=== PATIENT | female | born 1980 | race Caucasian/White ===

== ENCOUNTER → 2017-01-18 | Outpatient (CLI) | payer BC ==
--- NOTE | 2017-01-18 08:23 | US ---
EXAMINATION TYPE: US pelvic complete DATE OF EXAM: 01/18/2017 7:59 AM COMPARISON: NONE CLINICAL HISTORY: R10.2 Pelvic and Perineal,. general pain "all over" for a couple months, patient do es have irregular cycles and is currently late for next cycle TECHNIQUE: TA Date of LMP: 11/23/2016 EXAM MEASUREMENTS: Uterus: 7.6 x 5.4 x 5.6 cm Endometrial Stripe: 1.9 cm Right Ovary: 2.8 x 2.3 x 2.2 cm Left Ovary: 3.4 x 2.6 x 2.3 cm 1. Uterus: Anteverted no distinct mass although uterine myometrium is heterogenous. 2. Endometrium: thickened 3. Right Ovary: wnl 4. Left Ovary: wnl 5. Bilateral Adnexa: wnl 6. Posterior cul-de-sac: wnl IMPRESSION: Heterogenous uterine myometrium is nonspecific. Otherwise examination is within normal li mits.
--- NOTE | 2017-01-18 08:25 | US ---
EXAMINATION TYPE: US abdomen complete DATE OF EXAM: 01/18/2017 8:13 AM COMPARISON: NONE CLINICAL HISTORY: R10.2 Pelvic and Perineal, R10.10 Upper abd pain. General pain for a few months EXAM MEASUREMENTS: Liver Length: 14.2 cm Gallbladder Wall: 0.2 cm CBD: 0.5 cm Spleen: 10.4 cm Right Kidney: 10.2 x 4.6 x 5.5 cm Left Kidney: 10.1 x 4.4 x 5.4 cm Pancreas: tail was obscured by bowel gas, otherwise wnl Liver: difficult to penetrate, wnl Gallbladder: wnl Evidence for sonographic Mercer's sign: no CBD: wnl Spleen: wnl Right Kidney: wnl Left Kidney: wnl Upper IVC: wnl Abd Aorta: wnl The liver is homogenous. The intrahepatic portion of the IVC and proximal abdominal aorta are within normal limits. There is no evidence of cholelithiasis. Common bile duct is unremarkable. The visu alized portions of the pancreas are homogenous. The spleen is unremarkable. Kidneys are symmetric a nd free of hydronephrosis. No renal lesions are seen. IMPRESSION: Negative study.
== END | disposition home or self-care (01) ==
LOC: RADUSWWP 07:48
PROVIDERS: ATTEND Family Medicine
DX: R10.2 Pelvic and perineal pain (principal)
CPT/HCPCS: 76700; 76856

== ENCOUNTER 2019-12-17 08:56 | Emergency (ER) | payer BC ==
[2019-12-17 09:16] VITALS: RESP 18; TEMP 98.1
[2019-12-17] MEDS ORDERED: SODIUM CHLORIDE 0.9% 2,000 ML IV ONE (09:41)
[2019-12-17] MEDS ORDERED: METOCLOPRAMIDE 5 MG/ML 2 ML VIAL IVP STA (09:41)
[2019-12-17] MEDS ORDERED: diphenhydrAMINE 50 MG/ML 1 ML VIAL IVP STA (09:41)
--- NOTE | 2019-12-17 09:49 | ED ---
Nausea/Vomiting/Diarrhea HPI - General Chief complaint: Nausea/Vomiting/Diarrhea Stated complaint: poss dehydration/8 wks preg Time Seen by Provider: 12/17/19 09:19 Source: patient, RN notes reviewed Mode of arrival: ambulatory Limitations: no limitations - History of Present Illness Initial comments: This a 39-year-old female presents emergency Department chief complaint of nausea vomiting, dehydration early . Patient is A0 scheduled see her BEAN DU[employer] Dr. Castro tomorrow. Patient states that she generally does not feel well she's been nauseated unable to keep any down at this point. She states that she did go on a cruise recently but states an OB also sick and she states symptoms were present prior to going to the cruise. Patient denies any significant abdominal pain she did have some spotting last week but no bleeding at this time denies any vaginal discharge. Patient has no current dysuria denies flank pain, back pain, no fevers or chills. - Related Data Home Medications Medication Instructions Recorded Confirmed Loratadine [Claritin] 5 mg PO DAILY 03/18/15 03/18/15 Allergies Allergy/AdvReac Type Severity Reaction Status Date / Time No Known Allergies Allergy Verified 12/17/19 09:16 Review of Systems ROS Statement: Those systems with pertinent positive or pertinent negative responses have been documented in the HPI. ROS Other: All systems not noted in ROS Statement are negative. Past Medical History Past Medical History: Asthma History of Any Multi-Drug Resistant Organisms: None Reported Past Surgical History: Section Past Psychological History: No Psychological Hx Reported Smoking Status: Never smoker Past Alcohol Use History: None Reported Past Drug Use History: None Reported General Exam Limitations: no limitations General appearance: alert, in no apparent distress Head exam: Present: atraumatic, normocephalic, normal inspection Eye exam: Present: normal appearance, PERRL, EOMI. Absent: scleral icterus, conjunctival injection, periorbital swelling Neck exam: Present: normal inspection, full ROM. Absent: tenderness, meningismus, lymphadenopathy Respiratory exam: Present: normal lung sounds bilaterally. Absent: respiratory distress, wheezes, rales, rhonchi, stridor Cardiovascular Exam: Present: regular rate, normal rhythm, normal heart sounds. Absent: systolic murmur, diastolic murmur, rubs, gallop, clicks GI/Abdominal exam: Present: soft, normal bowel sounds. Absent: distended, tenderness, guarding, rebound, rigid Back exam: Absent: CVA tenderness (R), CVA tenderness (L) Neurological exam: Present: alert Skin exam: Present: warm, dry, intact, normal color. Absent: rash Course Vital Signs 12/17/19 09:13 Temperature 98.1 F Pulse Rate 90 Respiratory 18 Rate Blood Pressure 125/87 O2 Sat by Pulse 100 Oximetry Medical Decision Making - Medical Decision Making 39-year-old female presented for nausea vomiting. Patient was well hydrated, given Reglan and Benadryl she does feel improved she did develop some bleeding in emergency department by has no current pain. Patient is A- blood type will be given RhoGAM. Patient has appointment with Dr. Castro tomorrow for follow- up and return for any worsening symptoms. - Lab Data Result diagrams: 12/17/19 09:50 12/17/19 09:50 Lab Results 12/17/19 12/17/19 12/17/19 Range/Units 09:50 09:50 09:50 WBC 8.4 (3.8-10.6) k/uL RBC 4.57 (3.80-5.40) m/uL Hgb 13.7 (11.4-16.0) gm/dL Hct 40.3 (34.0-46.0) % MCV 88.1 (80.0-100.0) fL MCH 30.0 (25.0-35.0) pg MCHC 34.1 (31.0-37.0) g/dL RDW 12.1 (11.5-15.5) % Plt Count 182 (150-450) k/uL Neutrophils % 82 % Lymphocytes % 13 % Monocytes % 3 % Eosinophils % 1 % Basophils % 0 % Neutrophils # 6.8 (1.3-7.7) k/uL Lymphocytes # 1.1 (1.0-4.8) k/uL Monocytes # 0.3 (0-1.0) k/uL Eosinophils # 0.1 (0-0.7) k/uL Basophils # 0.0 (0-0.2) k/uL Sodium (137-145) mmol/L Potassium (3.5-5.1) mmol/L Chloride (98-107) mmol/L Carbon Dioxide (22-30) mmol/L Anion Gap mmol/L BUN (7-17) mg/dL Creatinine (0.52-1.04) mg/dL Est GFR (CKD-EPI)AfAm (>60 ml/min/1.73 sqM) Est GFR (CKD-EPI)NonAf (>60 ml/min/1.73 sqM) Glucose (74-99) mg/dL Calcium (8.4-10.2) mg/dL Total Bilirubin (0.2-1.3) mg/dL AST (14-36) U/L ALT (4-34) U/L Alkaline Phosphatase (38-126) U/L Total Protein (6.3-8.2) g/dL Albumin (3.5-5.0) g/dL HCG, Quant mIU/mL Urine Color Yellow Urine Appearance Clear (Clear) Urine pH 5.5 (5.0-8.0) Ur Specific [place] 1.019 (1.001-1.035) Urine Protein Negative (Negative) Urine Glucose (UA) Negative (Negative) Urine Ketones Trace H (Negative) Urine Blood Negative (Negative) Urine Nitrite Negative (Negative) Urine Bilirubin Negative (Negative) Urine Urobilinogen <2.0 (<2.0) mg/dL Ur Leukocyte Esterase Small H (Negative) Urine RBC 1 (0-5) /hpf Urine WBC 2 (0-5) /hpf Ur Squamous Epith Cells 5 H (0-4) /hpf Urine Bacteria Occasional H (None) /hpf Hyaline Casts 1 (0-2) /lpf Urine Mucus Many H (None) /hpf Blood Type A Negative Blood Type Recheck A Neg Bld Type Recheck Status No 12/17/19 Range/Units 09:50 WBC (3.8-10.6) k/uL RBC (3.80-5.40) m/uL Hgb (11.4-16.0) gm/dL Hct (34.0-46.0) % MCV (80.0-100.0) fL MCH (25.0-35.0) pg MCHC (31.0-37.0) g/dL RDW (11.5-15.5) % Plt Count (150-450) k/uL Neutrophils % % Lymphocytes % % Monocytes % % Eosinophils % % Basophils % % Neutrophils # (1.3-7.7) k/uL Lymphocytes # (1.0-4.8) k/uL Monocytes # (0-1.0) k/uL Eosinophils # (0-0.7) k/uL Basophils # (0-0.2) k/uL Sodium 134 L (137-145) mmol/L Potassium 3.9 (3.5-5.1) mmol/L Chloride 104 (98-107) mmol/L Carbon Dioxide 20 L (22-30) mmol/L Anion Gap 10 mmol/L BUN 10 (7-17) mg/dL Creatinine 0.64 (0.52-1.04) mg/dL Est GFR (CKD-EPI)AfAm >90 (>60 ml/min/1.73 sqM) Est GFR (CKD-EPI)NonAf >90 (>60 ml/min/1.73 sqM) Glucose 86 (74-99) mg/dL Calcium 8.8 (8.4-10.2) mg/dL Total Bilirubin 0.5 (0.2-1.3) mg/dL AST 21 (14-36) U/L ALT 15 (4-34) U/L Alkaline Phosphatase 42 (38-126) U/L Total Protein 6.7 (6.3-8.2) g/dL Albumin 3.8 (3.5-5.0) g/dL HCG, Quant 75417.3 mIU/mL Urine Color Urine Appearance (Clear) Urine pH (5.0-8.0) Ur Specific [place] (1.001-1.035) Urine Protein (Negative) Urine Glucose (UA) (Negative) Urine Ketones (Negative) Urine Blood (Negative) Urine Nitrite (Negative) Urine Bilirubin (Negative) Urine Urobilinogen (<2.0) mg/dL Ur Leukocyte Esterase (Negative) Urine RBC (0-5) /hpf Urine WBC (0-5) /hpf Ur Squamous Epith Cells (0-4) /hpf Urine Bacteria (None) /hpf Hyaline Casts (0-2) /lpf Urine Mucus (None) /hpf Blood Type Blood Type Recheck Bld Type Recheck Status Disposition Clinical Impression: Nausea/vomiting in , Threatened miscarriage in early Disposition: HOME SELF-CARE Condition: Stable Instructions (If sedation given, give patient instructions): Acute Nausea and Vomiting (ED) Additional Instructions: Please return to the Emergency Department if symptoms worsen or any other concerns. Is patient prescribed a controlled substance at d/c from ED?: No Referrals: Skylar Carter III, MD [Primary Care Provider] - 1-2 days Time of Disposition: 11:38
[2019-12-17 10:13] LABS: Basophils % (A) 0 %; Eosinophils # (A) 0.1 k/uL (0-0.7); Eosinophils % (A) 1 %; HCT 40.3 % (34.0-46.0); HGB 13.7 gm/dL (11.4-16.0); Lymphocytes # (A) 1.1 k/uL (1.0-4.8); Lymphocytes % (A) 13 %; MCHC 34.1 g/dL (31.0-37.0); MCV 88.1 fL (80.0-100.0); Mean Platelet Volume 8.5; Monocytes # (A) 0.3 k/uL (0-1.0); Monocytes % (A) 3 %; Neutrophils # (A) 6.8 k/uL (1.3-7.7); Neutrophils % (A) 82 %; Platelet Count 182 k/uL (150-450); RBC 4.57 m/uL (3.80-5.40); RDW 12.1 % (11.5-15.5); WBC 8.4 k/uL (3.8-10.6)
[2019-12-17 10:25] LABS: ALT 15 U/L (4-34); AST 21 U/L (14-36); African American GFR (CKD) >90 (>60 ml/min/1.73 sqM); Albumin 3.8 g/dL (3.5-5.0); Alkaline Phosphatase 42 U/L (38-126); Anion Gap 10 mmol/L; Blood Urea Nitrogen 10 mg/dL (7-17); Calcium 8.8 mg/dL (8.4-10.2); Carbon Dioxide 20 mmol/L (22-30); Chloride 104 mmol/L (98-107); Glucose 86 mg/dL (74-99); Non-African American GFR(CKD) >90 (>60 ml/min/1.73 sqM); Potassium 3.9 mmol/L (3.5-5.1); Sodium 134 mmol/L (137-145); Total Bilirubin 0.5 mg/dL (0.2-1.3); Total Protein 6.7 g/dL (6.3-8.2)
[2019-12-17 10:52] LABS: Appearance,Urine Clear (Clear); Bacteria,Urine Occasional /hpf; Bilirubin,Urine Negative (Negative); Blood,Urine Negative (Negative); Color,Urine Yellow; Glucose,Urine (UA) Negative (Negative); Hyaline Casts,Urine 1 /lpf (0-2); Ketones,Urine Trace (Negative); Leukocyte Esterase,Urine Small (Negative); Mucus,Urine Many /hpf; Nitrite,Urine Negative (Negative); PH, Urine 5.5 (5.0-8.0); Protein,Urine Negative (Negative); RBC,Urine 1 /hpf (0-5); Specific Gravity,Urine 1.019 (1.001-1.035); Squamous Epithelial Cell,Urine 5 /hpf (0-4); Urobilinogen,Urine <2.0 mg/dL (<2.0); WBC,Urine 2 /hpf (0-5)
[2019-12-17] MEDS ORDERED: Rhogam IMMUNE GLOBULIN 1,500 UNIT/1 ML IM ONE (11:04)
--- NOTE | 2019-12-17 11:07 | US ---
EXAMINATION TYPE: Transabdominal DATE OF EXAM: 12/17/2019 10:53 AM COMPARISON: NONE CLINICAL HISTORY: pain. Dizziness EXAM PERFORMED: Transabdominal (TA) EXAM MEASUREMENTS: GESTATIONAL AGE / DATING Physician Established: Not yet established Dates by LMP: (8 weeks/1 days) EDC: 07/27/2020 Dates by First Scan: No previous this is first scan Dates by Current Scan for: ( 7 weeks/2 days) EDC: 08/02/2020 MATERNAL ANATOMY Uterus: 9.8 x 6.3 x 7.0 cm Right Ovary: 3.2 x 1.8 x 2.8 cm Left Ovary: 3.8 x 3.7 x 3.5 cm Post CDS / Adnexa: wnl Presence of free fluid: no Presence of corpus luteal cyst: yes left ovary Presence of subchorionic bleed: no GESTATION / SURVEY CRL: 1.14 cm (7 weeks/2 days) Yolk Sac (normal less than 6mm): 2 mm Heart Rate: 142 bpm Rhythm: Normal IUP: Live IUP Date of LMP: 10/21/2019 Beta HcG (if available): Not available at this time IMPRESSION: Single live intrauterine has a sonographic age of 7 weeks and 2 days and estima leo date of delivery of 08/02/2020, borderline concordant with menstrual age.
[2019-12-17] MEDS ORDERED: ACETAMINOPHEN TAB 325 MG TAB PO STA (11:27)
[2019-12-17 11:34] LABS: HCG,Quantitative Serum 70020.3 mIU/mL
[2019-12-17 13:34] VITALS: BP 103/65; PULSE 64
== END 2019-12-17 13:33 | disposition home or self-care (01) ==
LOC: EC 08:56
DX: O20.0 Threatened abortion (principal); O21.9 Vomiting of pregnancy, unspecified; Z67.11 Type A blood, Rh negative; O99.511 Diseases of the respiratory system complicating pregnancy, first trimester; J45.909 Unspecified asthma, uncomplicated; Z79.899 Other long term (current) drug therapy; Z98.890 Other specified postprocedural states; Z3A.01 Less than 8 weeks gestation of pregnancy
CPT/HCPCS: 36415; 86900; 86901; 80053; 85025; 86850; 81001; 84702; 76801; 76817; 90384; 99284; 96374; 96375; 96361 ×2; 96372; J2791; J1200; J2765

== ENCOUNTER 2020-06-25 19:04 | Outpatient (CLI) | payer BC ==
[2020-06-25 20:28] VITALS: BP 130/80; PULSE 82; RESP 16; TEMP 97.1
--- NOTE | 2020-06-26 07:27 | P.MSEPDOC ---
Presenting Problems - Arrival Data Date of Arrival on Unit: 06/25/20 Time of Arrival on Unit: 19:04 Mode of Transport: Ambulatory - Complaint OB-Reason for Admission/Chief Complaint: Rule Out PROM Medical History - Information : 2 Para: 1 Term: 1 : 0 Abortions: Spontaneous or Elective: 0 Number of Living Children: 1 - Gestational Age Gestational Age by DIAMANTE (wks/days): 35 Weeks and 3 Days - History Complications: Prior Sexually Transmitted Diseases: HSV Review of Systems - Review of Systems Constitutional: No problems Breast: No problems ENT: No problems Cardiovascular: No problems Respiratory: No problems Gastrointestinal: No problems Genitourinary: No problems Musculoskeletal: No problems Neurological: No problems Skin: No problems Vital Signs - Temperature Temperature: 97.1 F Temperature Source: Temporal Artery Scan - Pulse Right Sitting Pulse Rate: 82 Pulse Assessment Method: Automatic Cuff - Respirations Respiratory Rate: 16 Oxygen Delivery Method: Room Air - Blood Pressure Right Arm Blood Pressure: 130/80 Blood Pressure Mean: 96 Blood Pressure Source: Automatic Cuff Medical Screen Scoring (Pre) - Cervical Exam Dilation: Exam Deferred Effacement: Exam Deferred Membranes: Intact - Uterine Contractions Frequency: N/A Duration: N/A Intensity: N/A - Maternal Vital Signs Maternal Temperature: N/A Maternal Blood Pressure: N/A Signs of Preeclampsia: N/A Maternal Respirations: N/A - Maternal Trauma Maternal Trauma: N/A - Assessment - Baby A Baseline FHR: 145 Heart Rate - NICHD Category: Category I (Normal) = 0 Position: N/A Station: N/A - Total Score - Baby A Total Score - Baby A: 0 - Total Score - Baby B Total Score - Baby B: 0 - Total Score - Baby C Total Score - Baby C: 0 - Level of Risk - Baby A Level of Risk - Baby A: Low (0-5) - Level of Risk - Baby B Level of Risk - Baby B: Low (0-5) - Level of Risk - Baby C Level of Risk - Baby C: Low (0-5) Physician Notification (Pre) - Physician Notified Physician Notified Date: 06/25/20 Physician Notified Time: 19:45 New Order Received: Yes (d/c home after 1 hour of monitoring, if fht remain reactive) Disposition - Disposition OB Disposition: Discharge to home, Written follow up instructions reviewed Discharge Date: 06/25/20 Discharge Time: 20:15 I agree with the RN Medical Screening Exam: Yes Risk & Benefit of care provided described in d/c instruction: Yes Diagnosis: FALSE LABOR BEFORE 37 COMPLETED WEEKS OF GEST, THIRD TRI (Patient presents complaining of gush of fluid earlier. In discussion with her as a small amount and has not been continuous. Speculum exam per the RN does not show any significant fluid in the anterior sure is negative. Nonstress tests is category 1. No evidence of maternal compromise. Plan is discharge home follow up Dr. Castro as scheduled.)
== END 2020-06-25 20:15 | disposition home or self-care (01) ==
LOC: FBPOP 19:04
PROVIDERS: ATTEND Obstetrics & Gynecology
DX: O47.03 False labor before 37 completed weeks of gestation, third trimester (principal); Z3A.35 35 weeks gestation of pregnancy
CPT/HCPCS: 59025; 84112; 99213

== ENCOUNTER 2020-07-03 10:38 | Outpatient (CLI) | payer BC ==
[2020-07-03 11:43] VITALS: PULSE 95; RESP 18; TEMP 98.2
[2020-07-03 11:45] LABS: Basophils % (A) 0 %; Eosinophils # (A) 0.1 k/uL (0-0.7); Eosinophils % (A) 1 %; HCT 38.5 % (34.0-46.0); HGB 12.8 gm/dL (11.4-16.0); Lymphocytes # (A) 1.6 k/uL (1.0-4.8); Lymphocytes % (A) 18 %; MCH 30.5 pg (25.0-35.0); MCHC 33.2 g/dL (31.0-37.0); MCV 91.9 fL (80.0-100.0); Mean Platelet Volume 9.7; Monocytes # (A) 0.4 k/uL (0-1.0); Monocytes % (A) 5 %; Neutrophils # (A) 6.8 k/uL (1.3-7.7); Neutrophils % (A) 75 %; Platelet Count 161 k/uL (150-450); RBC 4.19 m/uL (3.80-5.40); WBC 9.1 k/uL (3.8-10.6)
[2020-07-03 11:51] LABS: ALT 18 U/L (4-34); AST 25 U/L (14-36); African American GFR (CKD) >90 (>60 ml/min/1.73 sqM); Blood Urea Nitrogen 9 mg/dL (7-17); LDH 427 U/L (313-618); Non-African American GFR(CKD) >90 (>60 ml/min/1.73 sqM); Uric Acid 3.7 mg/dL (3.7-7.4)
[2020-07-03 11:55] LABS: Appearance,Urine Cloudy (Clear); Bacteria,Urine Moderate /hpf; Bilirubin,Urine Negative (Negative); Blood,Urine Negative (Negative); Color,Urine Yellow; Glucose,Urine (UA) Negative (Negative); Hyaline Casts,Urine 1 /lpf (0-2); Ketones,Urine Negative (Negative); Leukocyte Esterase,Urine Moderate (Negative); Mucus,Urine Occasional /hpf; Nitrite,Urine Negative (Negative); PH, Urine 6.5 (5.0-8.0); Protein,Urine Negative (Negative); RBC,Urine 1 /hpf (0-5); Specific Gravity,Urine 1.017 (1.001-1.035); Squamous Epithelial Cell,Urine 1 /hpf (0-4); Urobilinogen,Urine <2.0 mg/dL (<2.0); WBC,Urine 6 /hpf (0-5)
[2020-07-03 12:10] LABS: Protein/Creatinine Ratio,Urine 0.119
[2020-07-03 12:51] VITALS: BP 134/85
--- NOTE | 2020-07-21 09:56 | P.MSEPDOC ---
Presenting Problems - Arrival Data Date of Arrival on Unit: 07/03/20 Time of Arrival on Unit: 10:50 Mode of Transport: Ambulatory - Complaint OB-Reason for Admission/Chief Complaint: PIH Medical History - Information : 2 Para: 1 Term: 1 : 0 Abortions: Spontaneous or Elective: 0 Number of Living Children: 1 - Gestational Age Gestational Age by DIAMANTE (wks/days): 36 Weeks and 4 Days - History Sexually Transmitted Diseases: HSV Comment: on valtrex daily 500 mg Review of Systems - Review of Systems Constitutional: No problems Breast: No problems ENT: No problems Cardiovascular: No problems Respiratory: No problems Gastrointestinal: No problems Genitourinary: No problems Musculoskeletal: No problems Neurological: No problems Skin: No problems Vital Signs - Temperature Temperature: 98.2 F Temperature Source: Oral - Pulse Right Brachial Pulse Rate: 95 Pulse Assessment Method: Automatic Cuff - Respirations Respiratory Rate: 18 Oxygen Delivery Method: Room Air O2 Sat by Pulse Oximetry: 100 - Blood Pressure Right Arm Blood Pressure: 134/85 Blood Pressure Mean: 101 Blood Pressure Source: Automatic Cuff Medical Screen Scoring (Pre) - Cervical Exam Dilation: Exam Deferred Effacement: Exam Deferred Membranes: Intact - Uterine Contractions Frequency: N/A Duration: N/A Intensity: N/A - Maternal Vital Signs Maternal Temperature: N/A Maternal Blood Pressure: N/A Signs of Preeclampsia: N/A Maternal Respirations: N/A - Maternal Trauma Maternal Trauma: N/A - Assessment - Baby A Baseline FHR: 145 Heart Rate - NICHD Category: Category I (Normal) = 0 NST: Reactive Position: N/A Station: N/A - Total Score - Baby A Total Score - Baby A: 0 - Total Score - Baby B Total Score - Baby B: 0 - Total Score - Baby C Total Score - Baby C: 0 - Level of Risk - Baby A Level of Risk - Baby A: Low (0-5) - Level of Risk - Baby B Level of Risk - Baby B: Low (0-5) - Level of Risk - Baby C Level of Risk - Baby C: Low (0-5) Physician Notification (Pre) - Physician Notified Physician Notified Date: 07/03/20 Physician Notified Time: 12:35 New Order Received: Yes - Notification Comment Comment: disch home. will call antibiotic into [facility] for UTI in approx 1 hr. Disposition - Disposition OB Disposition: Discharge to home Discharge Date: 07/03/20 Discharge Time: 12:45 I agree with the RN Medical Screening Exam: Yes Risk & Benefit of care provided described in d/c instruction: Yes Diagnosis: GESTATIONAL HTN W/O SIGNIFICANT PROTEINURIA, FIRST TRIMESTER
== END 2020-07-03 12:45 | disposition home or self-care (01) ==
LOC: FBPOP 10:38
PROVIDERS: ATTEND Obstetrics & Gynecology
DX: O13.3 Gestational [pregnancy-induced] hypertension without significant proteinuria, third trimester (principal); Z3A.36 36 weeks gestation of pregnancy
CPT/HCPCS: 59025; 81001; 82565; 82570; 83615; 84156; 84450; 84460; 84520; 84550; 85025

== ENCOUNTER 2020-07-07 14:05 | Inpatient (IN) | payer BC ==
[2020-07-07] MEDS ORDERED: LACTATED RINGERS 1,000 ML IV ONE (14:47)
[2020-07-07] MEDS ORDERED: CITRIC ACID-SODIUM CITRATE 15 ML CUP PO ONE (14:47)
[2020-07-07] MEDS ORDERED: LACTATED RINGERS 1,000 ML IV SCH (15:00)
[2020-07-07 15:13] LABS: Basophils % (A) 0 %; Eosinophils # (A) 0.1 k/uL (0-0.7); Eosinophils % (A) 1 %; HCT 42.9 % (34.0-46.0); Lymphocytes # (A) 1.7 k/uL (1.0-4.8); Lymphocytes % (A) 14 %; MCH 30.6 pg (25.0-35.0); MCHC 32.7 g/dL (31.0-37.0); MCV 93.7 fL (80.0-100.0); Mean Platelet Volume 9.8; Monocytes # (A) 0.4 k/uL (0-1.0); Monocytes % (A) 4 %; Neutrophils # (A) 9.1 k/uL (1.3-7.7); Neutrophils % (A) 79 %; Platelet Count 178 k/uL (150-450); RBC 4.58 m/uL (3.80-5.40); RDW 13.1 % (11.5-15.5); WBC 11.5 k/uL (3.8-10.6)
[2020-07-07 15:18] LABS: African American GFR (CKD) >90 (>60 ml/min/1.73 sqM); Non-African American GFR(CKD) >90 (>60 ml/min/1.73 sqM); Uric Acid 3.9 mg/dL (3.7-7.4)
[2020-07-07 15:31] LABS: INR 0.9 (<1.2); Partial Thromboplastin Time 21.9 sec (22.0-30.0); Prothrombin Time 9.4 sec (9.0-12.0)
[2020-07-07 16:32] LABS: Protein/Creatinine Ratio,Urine 0.094
[2020-07-07 16:37] LABS: Appearance,Urine Clear (Clear); Bilirubin,Urine Negative (Negative); Blood,Urine Negative (Negative); Color,Urine Yellow; Glucose,Urine (UA) Negative (Negative); Ketones,Urine 3+ (Negative); Leukocyte Esterase,Urine Negative (Negative); Nitrite,Urine Negative (Negative); PH, Urine 5.5 (5.0-8.0); Protein,Urine Trace (Negative); Specific Gravity,Urine 1.022 (1.001-1.035); Urobilinogen,Urine <2.0 mg/dL (<2.0)
[2020-07-07] MEDS ORDERED: MORPHINE SULFATE (PF) 0.3 MG/0.3 ML SYR ONE (16:57)
[2020-07-07] MEDS ORDERED: ONDANSETRON 4 MG/2 ML VIAL ONE (16:57)
[2020-07-07] MEDS ORDERED: OXYTOCIN 10 UNIT/ML 1 ML VIAL ONE (16:57)
[2020-07-07] MEDS ORDERED: fentaNYL (PF) 50 MCG/ML 2 ML AMP ONE (16:57)
[2020-07-07] MEDS ORDERED: KETOROLAC 15 MG/ML 1 ML VIAL ONE (16:57)
[2020-07-07] MEDS ORDERED: NALBUPHINE 10 MG/ML (1 ML AMP) ONE (16:57)
[2020-07-07] MEDS ORDERED: ePHEDrine SULFATE/0.9% NACL/PF 50 MG/5 ML SYRINGE IV ONE (16:57)
[2020-07-07] MEDS ORDERED: METOCLOPRAMIDE 5 MG/ML 2 ML VIAL IVP PRN (17:36)
[2020-07-07] MEDS ORDERED: NALOXONE 0.4 MG/ML 1 ML VIAL IV PRN (17:36)
[2020-07-07] MEDS ORDERED: diphenhydrAMINE 50 MG/ML 1 ML VIAL IVP PRN ×2 (17:36)
[2020-07-07] MEDS ORDERED: ZOLPIDEM 5 MG TAB PO PRN (17:36)
[2020-07-07] MEDS ORDERED: ONDANSETRON 4 MG/2 ML VIAL IVP PRN (17:36)
[2020-07-07] MEDS ORDERED: diphenhydrAMINE 25 MG CAP PO PRN (17:36)
[2020-07-07] MEDS ORDERED: diphenhydrAMINE 50 MG CAP PO PRN (17:36)
[2020-07-07] MEDS ORDERED: ACETAMINOPHEN TAB 325 MG TAB PO PRN (17:36)
--- NOTE | 2020-07-07 17:41 | P.HPOB ---
History of Present Illness H&P Date: 07/07/20 Chief Complaint: Intrauterine at term: Gestational hypertension Orlando is a 39-year-old G3 to P1 at 37 weeks gestation who arrived to my office today for her scheduled visit. At her visit today she was again noted to have elevated blood pressures just like last week and as she is now past 37 weeks the decision to move forward with a repeat section day was made. Risks/benefits/alternatives reviewed patient in detail and all questions were answered for her prior to proceeding to the operating room. Her course other than advanced maternal age has been unremarkable. She does have a history of HSV and was taking acyclovir for prophylaxis. No symptoms or issues were noted otherwise. She is scheduled for a repeat section with tubal ligation for family planning. Category 1 tracing is noted prior to proceeding to the operative. Past Medical History Past Medical History: Asthma Additional Past Medical History / Comment(s): noduals on thyroid History of Any Multi-Drug Resistant Organisms: None Reported Past Surgical History: Section Past Anesthesia/Blood Transfusion Reactions: No Reported Reaction Past Psychological History: No Psychological Hx Reported Smoking Status: Never smoker Past Alcohol Use History: None Reported Past Drug Use History: None Reported Medications and Allergies Home Medications Medication Instructions Recorded Confirmed Type Loratadine [Claritin] 5 mg PO DAILY MDD 5 mg 03/18/15 07/07/20 History Pnv No.95/Ferrous Fum/Folic AC 1 tab PO DAILY MDD 1 tab 06/25/20 07/07/20 History [ Multivitamin Tablet] valACYclovir [Valtrex] 500 mg PO DAILY MDD 500 mg 06/25/20 07/07/20 History Cephalexin [Keflex] 500 mg PO Q6HR 07/07/20 07/07/20 History Allergies Allergy/AdvReac Type Severity Reaction Status Date / Time No Known Allergies Allergy Verified 12/17/19 09:16 Exam Osteopathic Statement: *. No significant issues noted on an osteopathic structural exam other than those noted in the History and Physical/Consult. Vital Signs Temp Pulse Resp BP Pulse Ox 07/07/20 14:42 98.4 F 101 H 16 136/85 99 Intake and Output 07/07/20 07/07/20 07/07/20 06:59 14:59 22:59 Other: Weight 92.323 kg - OBG Physical Exam Breast: both: normal (no masses) Abdomen: bowel sounds normal, no diffuse tenderness, no bruit present, no guarding noted, no hepatomegaly, no splenomegaly, no mass Vulva: both: normal Vagina: normal moisture, no discharge Cervix: no lesion, no discharge Uterus: normal size, normal contour Adnexa: both: normal Anus/Rectum: normal perianal skin, no rectal mass, no hemorrhoids, heme negative Results Result Diagrams: 07/07/20 14:57 07/07/20 14:57 Abnormal Lab Results - Last 24 Hours (Table) 07/07/20 07/07/20 07/07/20 Range/Units 14:57 14:57 16:18 WBC 11.5 H (3.8-10.6) k/uL Neutrophils # 9.1 H (1.3-7.7) k/uL APTT 21.9 L (22.0-30.0) sec Fibrinogen 511 H (200-500) mg/dL Urine Protein Trace H (Negative) Urine Ketones 3+ H (Negative)
--- NOTE | 2020-07-07 17:44 | P.OP ---
Date of Procedure: 07/07/20 Preoperative Diagnosis: Intrauterine at term: Prior section: Family planning Postoperative Diagnosis: Same Procedure(s) Performed: Repeat low transverse section with bilateral tubal occlusion Filshie clips Anesthesia: spinal Surgeon: Clement Hardy Flight Technician #1: Krystyna Joy Estimated Blood Loss (ml): 300 IV fluids (ml): 1,000 Urine output (ml): 200 Pathology: other (Placenta) Condition: stable Disposition: floor Operative Findings: Female scores of 9 and 9 at one and 5 minutes respectively and weight was 5 lbs. 9 oz. Description of Procedure: Patient was taken to the operating suite where a spinal anesthetic was found to be adequate. She was prepped and draped in normal sterile fashion and placed in the dorsal supine position with leftward tilt. Initially a Pfannenstiel skin incision was made and this incision was then carried through to underlying layer of the fascia was second knife. Fascia was then nicked in midline and this opening was extended laterally with Sutton scissors. Superior and inferior aspect of this incision were then grasped tented up and bluntly and sharply dissected off the rectus muscles. Rectus muscles were then divided the midline and blunt dissection through the peritoneum was done. This opening was then extended superiorly and inferiorly with good visualization of both bowel bladder. Bladder blade was then placed and the bladder flap identified. It was entered sharply with metastases scissors carried across face uterus and then bluntly dissected out of the operative field. Knife was then used to incise uterus this opening was fully developed a hemostat and then bluntly extended. Head was then atraumatically delivered and mouth nares were bulb suctioned anterior posterior shoulders were then easily delivered followed by the remainder the baby. Nursery personnel was present and assumed care. Placenta was then delivered intact Pitocin was added to the IV. Uterus was then exteriorized cleared of clots and debris and closed in 1 layer with 0 Vicryl suture. Once excellent hemostasis was obtained blood and debris was suctioned from the posterior cul-de-sac. Fallopian tubes were then identified and 2 cm from uterine cornu Filshie clips were applied. Uterus was then reinserted into the abdomen clips were reevaluated noted to be in position and no bleeding is noted in the nasal salpinx. Therefore peritoneal layer was re-approximate with 0 Vicryl suture. Fascial layer was closed with 0 Vicryl suture. One layer of 3-0 Vicryl was placed in deep subcuticular tissues reapproximate skin and close the space. Skin was then closed with 4-0 Vicryl subcuticularly. Sponge, lap, needle counts were all correct 2. Patient was then taken to the recovery room in stable and satisfactory condition.
[2020-07-07] MEDS: LACTATED RINGERS 1,000 ML IV SCH (19:49)
[2020-07-08] MEDS: KETOROLAC 15 MG/ML 1 ML VIAL IVP PRN ×3 (00:52→13:47)
[2020-07-08] MEDS: SENNOSIDES-DOCUSATE SODIUM 1 EACH TAB PO SCH ×3 (02:13→20:53)
--- NOTE | 2020-07-08 07:20 | P.PN ---
Progress Note - Text Progress Note Date: 07/08/20 Patient seen and examined POD # 1 s/p . Patient received spinal anesthesia with duramorph for post operative pain management. Patient with acceptable pain this morning. Patient able to ambulate and use the restroom without difficulty. Patient denies headache, fever, chills, chest pain, itching, dizziness, SOB, parathesias. Spinal site clean and without erythema. All questions answered.
[2020-07-08 07:34] LABS: Basophils % (A) 0 %; Eosinophils # (A) 0.1 k/uL (0-0.7); Eosinophils % (A) 1 %; HCT 36.9 % (34.0-46.0); HGB 12.2 gm/dL (11.4-16.0); Lymphocytes # (A) 1.8 k/uL (1.0-4.8); Lymphocytes % (A) 15 %; MCH 30.8 pg (25.0-35.0); MCHC 33.2 g/dL (31.0-37.0); MCV 92.9 fL (80.0-100.0); Mean Platelet Volume 9.4; Monocytes # (A) 0.6 k/uL (0-1.0); Monocytes % (A) 5 %; Neutrophils # (A) 9.7 k/uL (1.3-7.7); Neutrophils % (A) 78 %; Platelet Count 164 k/uL (150-450); RBC 3.97 m/uL (3.80-5.40); RDW 13.1 % (11.5-15.5); WBC 12.4 k/uL (3.8-10.6)
--- NOTE | 2020-07-08 08:33 | P.PNOBGPC ---
Subjective - Subjective Principal diagnosis: Postop day 1 Interval history: Orlando is doing very well postop day 1. She is involuting, voiding and she is tolerating her diet. She voices no complaints. Vital signs are stable and afebrile. Blood pressure much improved today. Patient reports: Reports appetite normal : doing well Objective - Vital Signs Latest vital signs: Vital Signs Temp Pulse Resp BP Pulse Ox 07/08/20 04:00 75 16 83/49 99 07/08/20 00:00 98.6 F 90 16 96/58 99 07/07/20 19:42 97.0 F L 97 18 142/68 99 07/07/20 19:12 97.0 F L 81 16 128/79 99 07/07/20 18:42 97.1 F L 109 H 18 142/68 98 07/07/20 18:27 90 16 119/64 07/07/20 18:12 116 H 16 122/60 98 07/07/20 17:57 117 H 16 112/56 98 07/07/20 17:42 97 F L 107 H 16 117/57 97 07/07/20 14:42 98.4 F 101 H 16 136/85 99 Intake and Output 07/07/20 07/08/20 07/08/20 22:59 06:59 14:59 Output Total 300 Balance -300 Output: Urine 300 Other: Voiding Method Indwelling Catheter - Exam Lungs: bilateral: normal Chest: Normal S1, Normal S2 Extremities: Present: normal Abdomen: Present: normal appearance, soft. Absent: distention, tenderness Incision: Present: normal, dry, intact Uterus: Present: normal, firm - Labs Labs: Abnormal Lab Results - Last 24 Hours (Table) 07/07/20 07/07/20 07/07/20 Range/Units 14:57 14:57 16:18 WBC 11.5 H (3.8-10.6) k/uL Neutrophils # 9.1 H (1.3-7.7) k/uL APTT 21.9 L (22.0-30.0) sec Fibrinogen 511 H (200-500) mg/dL Urine Protein Trace H (Negative) Urine Ketones 3+ H (Negative) 07/08/20 Range/Units 07:02 WBC 12.4 H (3.8-10.6) k/uL Neutrophils # 9.7 H (1.3-7.7) k/uL APTT (22.0-30.0) sec Fibrinogen (200-500) mg/dL Urine Protein (Negative) Urine Ketones (Negative)
[2020-07-08] MEDS: LACTATED RINGERS 1,000 ML IV SCH (12:30)
[2020-07-08] MEDS: IBUPROFEN 600 MG TAB PO PRN (18:54)
[2020-07-08] MEDS: HYDROcodone/APAP 7.5-325MG 1 EACH TAB PO PRN (20:53)
[2020-07-09 00:13] VITALS: RESP 16
[2020-07-09] MEDS: IBUPROFEN 600 MG TAB PO PRN ×2 (01:59→09:57)
[2020-07-09] MEDS: HYDROcodone/APAP 7.5-325MG 1 EACH TAB PO PRN (05:58)
--- NOTE | 2020-07-09 07:48 | P.DS ---
Providers Date of admission: 07/07/20 14:05 Expected date of discharge: 07/09/20 Attending physician: Clement Hardy Primary care physician: Stated None Hospital Course: Orlando is doing very well postop day 2. She is ambulating, voiding and she is tolerating her diet. She voices no complaints and is requesting discharge home today. Her vital signs are stable and she is afebrile. Heart regular, lungs clear, extremities without pain. Abdomen is soft uterus is firm and her incision is otherwise clean dry and intact. Assessment postop day 2 plan discharged home follow up with me in 1 week. All the questions are answered for her at this time she is stable for discharge this time. Patient Condition at Discharge: Good Plan - Discharge Summary New Discharge Prescriptions: New Ibuprofen [Motrin] 600 mg PO Q6HR PRN #30 tab PRN Reason: Pain HYDROcodone/APAP 5-325MG [[place] 5-325] 1 tab PO Q4HR PRN #30 tab PRN Reason: Pain No Action Loratadine [Claritin] 5 mg PO DAILY MDD 5 mg valACYclovir [Valtrex] 500 mg PO DAILY MDD 500 mg Pnv No.95/Ferrous Fum/Folic AC [ Multivitamin Tablet] 1 tab PO DAILY MDD 1 tab Cephalexin [Keflex] 500 mg PO Q6HR Discharge Medication List Loratadine [Claritin] 5 mg PO DAILY MDD 5 mg 03/18/15 [History] Pnv No.95/Ferrous Fum/Folic AC [ Multivitamin Tablet] 1 tab PO DAILY MDD 1 tab 06/25/20 [History] valACYclovir [Valtrex] 500 mg PO DAILY MDD 500 mg 06/25/20 [History] Cephalexin [Keflex] 500 mg PO Q6HR 07/07/20 [History] HYDROcodone/APAP 5-325MG [[place] 5-325] 1 tab PO Q4HR PRN #30 tab 07/09/20 [Rx] Ibuprofen [Motrin] 600 mg PO Q6HR PRN #30 tab 07/09/20 [Rx]
[2020-07-09] MEDS: SENNOSIDES-DOCUSATE SODIUM 1 EACH TAB PO SCH (08:07)
[2020-07-09 08:54] VITALS: BP 130/80; PULSE 97; TEMP 97.8
== END 2020-07-09 10:10 | disposition home or self-care (01) | DRG 785 ==
LOC: 4FBP 14:05
PROVIDERS: ADMIT Obstetrics & Gynecology; ATTEND Obstetrics & Gynecology
PROC: 10D00Z1 Extraction of Products of Conception, Low, Open Approach (ICD-10-PCS; principal; 2020-07-07 17:09)
PROC: 0UL70CZ Occlusion of Bilateral Fallopian Tubes with Extraluminal Device, Open Approach (ICD-10-PCS; principal; 2020-07-07 17:09)
DX: O13.4 Gestational [pregnancy-induced] hypertension without significant proteinuria, complicating childbirth (principal); J45.909 Unspecified asthma, uncomplicated; O34.211 Maternal care for low transverse scar from previous cesarean delivery; O99.52 Diseases of the respiratory system complicating childbirth; Z30.2 Encounter for sterilization; N85.8 Other specified noninflammatory disorders of uterus; O99.62 Diseases of the digestive system complicating childbirth; K21.9 Gastro-esophageal reflux disease without esophagitis; Z37.0 Single live birth; Z3A.37 37 weeks gestation of pregnancy; Z79.899 Other long term (current) drug therapy
CPT/HCPCS: 81003; 82565; 82570; 83615; 84156; 84450; 84460; 84520; 84550; 85025; 85384; 85461; 85610; 85730; 86850; 86870; 86880; 86900; 86901; 88307

== ENCOUNTER 2021-07-21 13:11 | Emergency (ER) | payer BC ==
[2021-07-21 13:35] VITALS: BP 118/78
[2021-07-21] MEDS ORDERED: IBUPROFEN 600 MG TAB PO STA (15:25)
[2021-07-21] MEDS ORDERED: ACETAMINOPHEN TAB 325 MG TAB PO STA (15:25)
--- NOTE | 2021-07-21 15:28 | XR ---
EXAMINATION TYPE: XR chest 2V DATE OF EXAM: 07/21/2021 COMPARISON: NONE HISTORY: Shortness of breath and cough, cold with TECHNIQUE: Frontal and lateral views of the chest are obtained. FINDINGS: Patchy disease is present bilaterally within the lungs. The the mediastinal silhouette is within normal limits. No pneumothorax or pleural effusion, bone mineralization is normal. IMPRESSION: Correlate for pneumonia
--- NOTE | 2021-07-21 15:38 | ED ---
URI HPI - General Chief Complaint: Upper Respiratory Infection Stated Complaint: SOB & cough Time Seen by Provider: 07/21/21 14:48 Source: patient, RN notes reviewed Mode of arrival: ambulatory Limitations: no limitations - History of Present Illness Initial Comments: Patient is a 40-year-old female that presents to emergency room complaining of upper respiratory tract symptoms for approximately 8 days. She notes that her tested positive for Covid last week. She notes that she notes her having more severe symptoms until early this week. So she can emergency room to get evaluated. She denied any other issues or complaints. She noted that she was spiking some fevers at home. She denied any chest pain shortness of breath headache nausea vomiting diarrhea constipation. - Related Data Home Medications Medication Instructions Recorded Confirmed Loratadine [Claritin] 5 mg PO DAILY MDD 5 mg 03/18/15 07/07/20 Pnv No.95/Ferrous Fum/Folic AC 1 tab PO DAILY MDD 1 tab 06/25/20 07/07/20 [ Multivitamin Tablet] valACYclovir [Valtrex] 500 mg PO DAILY MDD 500 mg 06/25/20 07/07/20 cephALEXin [Keflex] 500 mg PO Q6HR 07/07/20 07/07/20 Previous Rx's Medication Instructions Recorded HYDROcodone/APAP 5-325MG [Sterrett 1 tab PO Q4HR PRN #30 tab 07/09/20 5-325] Ibuprofen [Motrin] 600 mg PO Q6HR PRN #30 tab 07/09/20 Allergies Allergy/AdvReac Type Severity Reaction Status Date / Time No Known Allergies Allergy Verified 07/21/21 13:31 Review of Systems ROS Statement: Those systems with pertinent positive or pertinent negative responses have been documented in the HPI. ROS Other: All systems not noted in ROS Statement are negative. Past Medical History Past Medical History: Asthma Additional Past Medical History / Comment(s): noduals on thyroid History of Any Multi-Drug Resistant Organisms: None Reported Past Surgical History: Section Past Anesthesia/Blood Transfusion Reactions: No Reported Reaction Past Psychological History: No Psychological Hx Reported Smoking Status: Never smoker Past Alcohol Use History: None Reported Past Drug Use History: None Reported General Exam Limitations: no limitations General appearance: alert, in no apparent distress Head exam: Present: atraumatic, normocephalic, normal inspection Eye exam: Present: normal appearance, PERRL, EOMI. Absent: scleral icterus, conjunctival injection, periorbital swelling ENT exam: Present: normal exam, mucous membranes moist Neck exam: Present: normal inspection Respiratory exam: Present: normal lung sounds bilaterally. Absent: respiratory distress, wheezes, rales, rhonchi, stridor Cardiovascular Exam: Present: regular rate, normal rhythm, normal heart sounds. Absent: systolic murmur, diastolic murmur, rubs, gallop, clicks Extremities exam: Present: normal inspection, full ROM, normal capillary refill. Absent: tenderness, pedal edema, joint swelling, calf tenderness Neurological exam: Present: alert, oriented X3 Psychiatric exam: Present: normal affect, normal mood Skin exam: Present: warm, dry, intact, normal color. Absent: rash Course Vital Signs 07/21/21 07/21/21 13:31 15:27 Temperature 100.3 F H 103.0 F H Pulse Rate 108 H Respiratory 20 Rate Blood Pressure 118/78 O2 Sat by Pulse 94 L Oximetry Medical Decision Making - Medical Decision Making 40-year-old female with Covid like symptoms. Covid test, chest x-ray ordered. Covid test positive. Patient wishes to undergo IV monoclonal antibody infusion. 650 mg of Tylenol, 600 mg of Motrin ordered for fever of 103.0. Chest x-ray shows patchy bilateral infiltrates. Case discussed with Dr. Mitchell, patient discharge home after IV monoclonal antibody infusion. - Lab Data Lab Results 07/21/21 Range/Units 13:39 Coronavirus (PCR) Detected A (Not Detectd) - Radiology Data Radiology results: report reviewed, image reviewed Chest x-ray: Patchy diseases present bilaterally within the lungs. The medial spinal silhouette is within normal as. No pneumothorax or pleural effusion. Bone mineralization is normal. Disposition Clinical Impression: Pneumonia due to COVID-19 virus Disposition: HOME SELF-CARE Condition: Stable Instructions (If sedation given, give patient instructions): Coronavirus Disease 2019 (COVID-19) Additional Instructions: Please return to the Emergency Department if symptoms worsen or any other concerns. Follow-up primary care 1-2 days. Quarantine per CDC guidelines. Take Tylenol and Motrin alternating every 3 hours for fever control. Get plenty rest, increase oral fluids. Is patient prescribed a controlled substance at d/c from ED?: No Referrals: kSylar Carter III, MD [Primary Care Provider] - 1-2 days Time of Disposition: 15:38
[2021-07-21] MEDS ORDERED: SODIUM CHLORIDE 0.9% 50 ML IVPB ONE (15:45)
[2021-07-21] MEDS ORDERED: CASIRIVIMAB/IMDEVIMAB (EUA) 1,200 MG in SODIUM CHLORIDE 0.9% 100 ML IVPB ONE (16:00)
[2021-07-21 18:33] VITALS: PULSE 88; RESP 18; TEMP 99.2
== END 2021-07-21 18:32 | disposition home or self-care (01) ==
LOC: EC 13:11
DX: U07.1 COVID-19 (principal); J12.82 Pneumonia due to coronavirus disease 2019; J45.909 Unspecified asthma, uncomplicated
CPT/HCPCS: 99283; 96365; 87635; 71046; Q0243

== ENCOUNTER 2021-07-24 08:37 | Emergency (ER) | payer BC ==
[2021-07-24 09:00] VITALS: TEMP 98.4
[2021-07-24] MEDS ORDERED: DEXAMETHASONE SOD PHOSPHATE 10 MG/ML 1 ML VIAL IM STA (09:09)
[2021-07-24] MEDS ORDERED: ALBUTEROL HFA INHALER INHALATION STA (09:09)
--- NOTE | 2021-07-24 09:55 | ED ---
General Adult HPI - General Chief complaint: Shortness of Breath Stated complaint: revisit- Covid+, SOB Time Seen by Provider: 07/24/21 09:02 Source: patient, RN notes reviewed Mode of arrival: ambulatory Limitations: no limitations - History of Present Illness Initial comments: Patient is a 40-year-old female that presents to the emergency room complaining of increased shortness of breath. She recently received monoclonal antibodies for Covid positive presentation. She notes that she is feeling much better at this time. She notes that she thinks the Covid infection caused a asthma exacerbation. She notes that she has not taken at home medications as she has not had any issues in the past several months to years. She notes that she call her doctor who prescribed her an albuterol inhaler. She notes she been using it as prescribed with no relief. Patient was otherwise well-appearing. She denied any chest pain headache nausea vomiting diarrhea constipation fever fatigue chills. - Related Data Home Medications Medication Instructions Recorded Confirmed Acetaminophen Tab [Tylenol] 1,000 mg PO Q4H PRN 07/21/21 07/21/21 Ibuprofen [Motrin Ib] 400 mg PO Q8H PRN 07/21/21 07/21/21 SUMAtriptan SUCCINATE [Imitrex] 100 mg PO DAILY PRN 07/21/21 07/21/21 Previous Rx's Medication Instructions Recorded predniSONE 50 mg PO DAILY #5 tab 07/24/21 Allergies Allergy/AdvReac Type Severity Reaction Status Date / Time No Known Allergies Allergy Verified 07/24/21 09:00 Review of Systems ROS Statement: Those systems with pertinent positive or pertinent negative responses have been documented in the HPI. ROS Other: All systems not noted in ROS Statement are negative. Past Medical History Past Medical History: Asthma Additional Past Medical History / Comment(s): nodules on thyroid History of Any Multi-Drug Resistant Organisms: None Reported Past Surgical History: Section Past Anesthesia/Blood Transfusion Reactions: No Reported Reaction Past Psychological History: No Psychological Hx Reported Smoking Status: Never smoker Past Alcohol Use History: None Reported Past Drug Use History: None Reported General Exam Limitations: no limitations General appearance: alert, in no apparent distress Head exam: Present: atraumatic, normocephalic, normal inspection Eye exam: Present: normal appearance, PERRL, EOMI. Absent: scleral icterus, conjunctival injection, periorbital swelling ENT exam: Present: normal exam, mucous membranes moist Neck exam: Present: normal inspection Respiratory exam: Present: normal lung sounds bilaterally, wheezes (Right middle and lower lobe). Absent: respiratory distress, rales, rhonchi, stridor Cardiovascular Exam: Present: regular rate, normal rhythm, normal heart sounds. Absent: systolic murmur, diastolic murmur, rubs, gallop, clicks Extremities exam: Present: normal inspection, full ROM, normal capillary refill. Absent: tenderness, pedal edema, joint swelling, calf tenderness Neurological exam: Present: alert, oriented X3 Psychiatric exam: Present: normal affect, normal mood Skin exam: Present: warm, dry, intact, normal color. Absent: rash Course Vital Signs 07/24/21 08:57 Temperature 98.4 F Pulse Rate 114 H Respiratory 21 Rate Blood Pressure 122/81 O2 Sat by Pulse 93 L Oximetry Medical Decision Making - Medical Decision Making 40-year-old female complaining of asthma exacerbation. Chest x-ray, albuterol inhaler, 10 mg of Decadron ordered. Chest x-ray shows worsening bilateral focal opacities consistent with Covid 19 infection. Patient will be sent prednisone to pharmacy. Upon reevaluation patient says she is feeling better after short of breath with exertion at this time. Oxygen saturation is between 94-96 on room air. Patient feels comfortable with discharge home with follow-up primary care. Case discussed with Dr. Petty, patient discharge home with follow-up to primary care. - Radiology Data Radiology results: report reviewed, image reviewed Chest x-ray: Worsening bilateral multifocal opacities consistent with Covid 19 infection. Disposition Clinical Impression: Pneumonia due to COVID-19 virus Disposition: HOME SELF-CARE Condition: Stable Instructions (If sedation given, give patient instructions): Coronavirus Disease 2019 (COVID-19) Additional Instructions: Please return to the Emergency Department if symptoms worsen or any other concerns. Follow-up primary care 1-2 days. Take prednisone as prescribed. Continue use inhaler as prescribed. Avoid any strenuous activity or exercise. Get plenty rest, increase fluids. Can take Tylenol and Motrin as needed for pain/fevers. Prescriptions: predniSONE 50 mg PO DAILY #5 tab Is patient prescribed a controlled substance at d/c from ED?: No Referrals: Skylar Carter III, MD [Primary Care Provider] - 1-2 days Time of Disposition: 10:38
--- NOTE | 2021-07-24 10:11 | XR ---
EXAMINATION TYPE: XR chest 2V DATE OF EXAM: 07/24/2021 COMPARISON: Chest x-ray 3 days ago. HISTORY: Cough and fever. COVID. TECHNIQUE: Frontal and lateral views of the chest are obtained. FINDINGS: There worsening bilateral multifocal opacities. The cardiac silhouette size is stable and within normal limits. The osseous structures are intact. IMPRESSION: Worsening bilateral multifocal opacities consistent with covid-19 infection progression.
[2021-07-24 11:54] VITALS: BP 125/79; PULSE 97; RESP 20
== END 2021-07-24 10:50 | disposition home or self-care (01) ==
LOC: EC 08:37
DX: U07.1 COVID-19 (principal); J12.82 Pneumonia due to coronavirus disease 2019; J45.909 Unspecified asthma, uncomplicated; Z79.52 Long term (current) use of systemic steroids; Z79.1 Long term (current) use of non-steroidal anti-inflammatories (NSAID)
CPT/HCPCS: 94640; 71046; 99285; 96372; J1100

== ENCOUNTER 2022-04-24 12:23 | Emergency (ER) | payer BC ==
[2022-04-24] MEDS ORDERED: KETOROLAC 15 MG/ML 1 ML VIAL IVP STA (12:28)
[2022-04-24] MEDS ORDERED: HYDROmorphone 0.5 MG/0.5 ML SYRINGE IVP STA (12:29)
--- NOTE | 2022-04-24 12:41 | ED ---
General Adult HPI - General Stated complaint: ankle injury Time Seen by Provider: 04/24/22 12:23 Source: patient, RN notes reviewed, old records reviewed - History of Present Illness Initial comments: This is a 41-year-old female presents emergency Department stating she is having left ankle pain. Patient states she tripped on her flip flops twisted her ankle when they move the ankle she felt a pop in the ankle look like it was back in correct position compared to where it was after she had tripped. Patient is complaining of ankle pain or proximal leg pain. Patient states she doesn't know when she had her last tetanus. Patient denies any head or neck pain patient denies any other extremity pain. Patient denies any chest or back pain. - Related Data Home Medications Medication Instructions Recorded Confirmed Acetaminophen Tab [Tylenol] 1,000 mg PO Q4H PRN 07/21/21 07/21/21 Ibuprofen [Motrin Ib] 400 mg PO Q8H PRN 07/21/21 07/21/21 SUMAtriptan succinate [Imitrex] 100 mg PO DAILY PRN 07/21/21 07/21/21 Previous Rx's Medication Instructions Recorded predniSONE 50 mg PO DAILY #5 tab 07/24/21 Ketorolac [Toradol] 10 mg PO Q6HR #15 tab 04/24/22 Allergies Allergy/AdvReac Type Severity Reaction Status Date / Time No Known Allergies Allergy Verified 04/24/22 12:39 Review of Systems ROS Statement: Those systems with pertinent positive or pertinent negative responses have been documented in the HPI. ROS Other: All systems not noted in ROS Statement are negative. Past Medical History Past Medical History: Asthma Additional Past Medical History / Comment(s): nodules on thyroid History of Any Multi-Drug Resistant Organisms: None Reported Past Surgical History: Section Past Anesthesia/Blood Transfusion Reactions: No Reported Reaction Past Psychological History: No Psychological Hx Reported Smoking Status: Never smoker Past Alcohol Use History: None Reported Past Drug Use History: None Reported General Exam - General Exam Comments Initial Comments: GENERAL: Patient is well-developed and well-nourished. Patient is nontoxic and well- hydrated and is in mild distress. ENT: Neck is soft and supple. No significant lymphadenopathy is noted. Oropharynx is clear. Moist mucous membranes. Neck has full range of motion without eliciting any pain. EYES: The sclera were anicteric and conjunctiva were pink and moist. Extraocular movements were intact and pupils were equal round and reactive to light. Eyelids were unremarkable. SKIN: Abrasion medial aspect of the MTP joint. There is a small superficial abrasion of the left elbow NEUROLOGIC: Patient is alert and oriented x3. Cranial nerves II through XII are grossly intact. Motor and sensory are also intact. Normal speech, volume and content. Symmetrical smile. MUSCULOSKELETAL: Patient has some abrasions to the medial aspect of the MTP joint. Patient is tender at the proximal fibula and medial lateral malleolus. LYMPHATICS: No significant lymphadenopathy is noted PSYCHIATRIC: Normal psychiatric evaluation. Course Vital Signs 04/24/22 12:37 Temperature 97.3 F L Pulse Rate 63 Respiratory 16 Rate Blood Pressure 113/76 O2 Sat by Pulse 99 Oximetry Procedures - Orthopedic Splinting/Casting Injury #1 Side: left Lower Extremity Injury Location: short leg Lower Extremity Immobilizer: posterior splint Medical Decision Making - Medical Decision Making X-ray shows a distal slightly displaced comminuted fibula fracture. There is also displacement of the foot relative to the tibia. Patient is good neurovascularly Disposition Clinical Impression: Dislocated ankle, Fibula fracture Disposition: HOME SELF-CARE Condition: Good Instructions (If sedation given, give patient instructions): Ankle Fracture (ED) Prescriptions: Ketorolac [Toradol] 10 mg PO Q6HR #15 tab Is patient prescribed a controlled substance at d/c from ED?: No Referrals: Arnie Rdz MD [STAFF PHYSICIAN] - 1-2 days Time of Disposition: 15:34
[2022-04-24 12:46] VITALS: BP 113/76; PULSE 63; RESP 16; TEMP 97.3
--- NOTE | 2022-04-24 13:05 | XR ---
EXAMINATION TYPE: XR ankle complete LT, XR tibia fibula LT DATE OF EXAM: 04/24/2022 12:57 PM INDICATION: Patient age:Female; 41 years old; Reason for study: Trauma; COMPARISON: None TECHNIQUE: The left ankle is examined in AP lateral and oblique views. The left tibia-fibula examined in AP and lateral views. FINDINGS: Minimally comminuted distal left fibular spiral fracture with lateral displacement. There is gapping of the talar dome and the medial malleolus up to 13 mm. There is approximately 9 mm displacement IMPRESSION: Minimally comminuted distal left fibular spiral fracture with lateral subluxation of the foot.
[2022-04-24] MEDS ORDERED: HYDROmorphone 1 MG/ML 1 ML SYRINGE IVP STA (13:56)
[2022-04-24] MEDS ORDERED: BACITRACIN OINT 1 EACH PACKET TOPICAL ONE (15:10)
[2022-04-24] MEDS ORDERED: DIPH,PERTUS(ACELL)TETVAC-LF 0.5 ML VIAL IM ONE (15:32)
[2022-04-24] MEDS ORDERED: ACET/COD 300 MG/30 MG STARTER PACK 6 TAB BTL PO STA (15:36)
== END 2022-04-24 15:51 | disposition home or self-care (01) ==
LOC: EC 12:23
DX: S93.05XA Dislocation of left ankle joint, initial encounter (principal); S82.402A Unspecified fracture of shaft of left fibula, initial encounter for closed fracture; Z23 Encounter for immunization; J45.909 Unspecified asthma, uncomplicated; W01.0XXA Fall on same level from slipping, tripping and stumbling without subsequent striking against object, initial encounter
CPT/HCPCS: 73590; 73610; 90715; 99284; 96374; 96375; 96376; 90471; 29515; J1170 ×2; J1885

== ENCOUNTER → 2023-08-21 | Outpatient (CLI) | payer BC ==
--- NOTE | 2023-08-21 16:46 | US ---
EXAMINATION TYPE: US venous doppler duplex LE LT DATE OF EXAM: 08/21/2023 4:37 PM COMPARISON: NONE CLINICAL INDICATION: Female, 42 years old with history of I80.9 PHLEBITIS AND THROMBOPHLEBITIS OF UNS PECIFIE; Pt has history of fracture and surgery of left ankle last year/ pt states recent pain to lef t leg SIDE PERFORMED: Left TECHNIQUE: The lower extremity deep venous system is examined utilizing real time linear array sonog tam with graded compression, doppler sonography and color-flow sonography. VESSELS IMAGED: Common Femoral Vein Deep Femoral Vein Greater Saphenous Vein * Femoral Vein Popliteal Vein Small Saphenous Vein * Proximal Calf Veins (* superficial vessels) Left Leg: Negative for DVT Attempted to call Dr's office at time of exam- no answer IMPRESSION: No evidence for deep vein thrombosis of the left lower extremity.
== END | disposition home or self-care (01) ==
LOC: RADUSWWP 16:19
PROVIDERS: ATTEND Orthopaedic Surgery
DX: I80.9 Phlebitis and thrombophlebitis of unspecified site (principal)

== ENCOUNTER → 2023-10-26 | Outpatient (CLI) | payer BC ==
--- NOTE | 2023-10-30 12:44 | MM ---
Reason for Exam: Screening (asymptomatic). Baseline mammogram. Patient History: Menarche at age 13. First Full-Term at age 23. Premenopausal. Last menstrual period: 09/29/2023 Risk Values: Remedios 5 year model risk: 0.5%. NCI Lifetime model risk: 9.9%. Prior Study Comparison: Patient's first Mammogram. Tissue Density: The breast tissue is heterogeneously dense. This may lower the sensitivity of mammography. Findings: Analyzed By CAD. And appears symmetrical. There are scattered benign punctate calcifications present bilaterally. No suspicious groups of microcalcifications, spiculated or lobular masses, architectural distortion or other secondary signs of malignancy are mammographically apparent. Overall Assessment: Benign, BI-RAD 2 Management: Screening Mammogram of both breasts in 1 year. A negative mammogram report should not preclude additional follow up of suspicious palpable abnormalities. Patient should continue monthly self breast exam. A clinical breast exam by your physician is recommended on an annual basis and results should be correlated with mammographic findings. Electronically signed and approved by: Chaz Garcia D.O. Radiologis
== END | disposition home or self-care (01) ==
LOC: RADMAMWWP 15:50
PROVIDERS: ATTEND Obstetrics & Gynecology
DX: Z12.31 Encounter for screening mammogram for malignant neoplasm of breast (principal)
CPT/HCPCS: 77063; 77067

== ENCOUNTER → 2024-06-26 | Outpatient (CLI) | payer BC ==
[2024-06-26 10:08] VITALS: BP 134/89; PULSE 84; RESP 17; TEMP 97.9
--- NOTE | 2024-06-26 11:23 | P.HPOB ---
History of Present Illness H&P Date: 06/26/24 Chief Complaint: The patient is here for her routine gynecologic exam. This is a 43-year-old G2, P2 with an LMP of 05/15/2024. Patient is here to establish with this office. She is status post tubal ligation. She previously saw Dr. Contreras for her gynecologic care. She was last seen by Dr. Contreras about 1 year ago. She states she had a cryotherapy of the cervix in June 2023. She states it was not cancerous, but it was something that could turn into cancer. She has had other abnormal Pap smears in the past, but never needed procedures beyond the colposcopy. Her menstrual periods are typically every 35 to 38 days. Occasionally she will go up to 2 months without a menstrual period. In the past they were lasting up to 7 days with 5 days of heavier flow and had to change her protection every 2 hours. About 1 to 2 years ago she tried eating healthier and by doing this noticed her menstrual periods were lasting 5 to 7 days with only 3 days of heavier flow and they were not as heavy as prior to eating healthy. Review of Systems She thinks she has gained up to about 20 pounds over the past year. Her weight typically is somewhere between 157 and 180. Denies respiratory, cardiac, or GI problems. Past Medical History Past Medical History: Asthma, Thyroid Disorder Additional Past Medical History / Comment(s): Benign thyroid nodules. Migraine. Past MANAGER TESTING history: History of HPV, chlamydia, and genital HSV, all as a teenager. History of Any Multi-Drug Resistant Organisms: None Reported Past Surgical History: Section, Orthopedic Surgery Additional Past Surgical History / Comment(s): D&C, ankle surgery, section x 2. Past Anesthesia/Blood Transfusion Reactions: No Reported Reaction Past Psychological History: No Psychological Hx Reported Smoking Status: Never smoker Past Alcohol Use History: Occasional (0-3 drinks per month) Past Drug Use History: None Reported Additional History: She has been since 2001. 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 - Past Family History Mother Family Medical History: Cancer Additional Family Medical History / Comment(s): . Widespread cancer involving the bladder. Maternal grandfather had an NC. Father Family Medical History: Cancer, Myocardial Infarction (NC) Additional Family Medical History / Comment(s): Lung cancer Medications and Allergies Home Medications Medication Instructions Recorded Confirmed Type Acetaminophen Tab [Tylenol] 1,000 mg PO Q4H PRN 07/21/21 06/26/24 History Ibuprofen [Motrin Ib] 400 mg PO Q8H PRN 07/21/21 06/26/24 History SUMAtriptan succinate [Imitrex] 100 mg PO DAILY PRN 07/21/21 06/26/24 History Cholecalciferol [Vitamin D3 (125 1 tab PO DAILY 06/26/24 06/26/24 History Mcg = 5000 Iu)] Zinc Citrate [Zinc] 1 tab PO DAILY 06/26/24 06/26/24 History Allergies Allergy/AdvReac Type Severity Reaction Status Date / Time No Known Allergies Allergy Verified 06/26/24 10:04 Exam Vital Signs Temp Pulse Resp BP Pulse Ox 06/26/24 10:05 97.9 F 84 17 134/89 100 Intake and Output 06/25/24 06/26/24 06/26/24 22:59 06:59 14:59 Other: Weight 81.647 kg Height 5 feet 2 inches, weight 180 pounds, BMI 32.9. This is a well-developed well-nourished white female who is alert and oriented times 3 in no acute distress. HEENT: Within normal limits. NECK: Supple without mass or thyromegaly. CHEST AND LUNGS: Clear to auscultation. HEART: Regular rate and rhythm. BREASTS: Are without mass or discharge. AXILLARY EXAM: Negative for adenopathy. BACK: Negative for CVA tenderness. ABDOMEN: Soft, nontender, without palpable masses. PELVIC EXAM: Normal external genitalia. Cervix and vagina appear normal. There is no unusual discharge. There is no evidence of prolapse. The uterus is midposition, nongravid size and nontender. There are no palpable adnexal masses or tenderness. RECTAL EXAM: negative for mass or tenderness and is negative for occult blood. EXTREMITIES: Nontender. IMPRESSION: 1. 43-year-old female status post tubal ligation, with normal gynecologic exam. 2. History of cryotherapy of the cervix in June 2023 with uncertain diagnosis. Possible treatment for cervical dysplasia. Incomplete database. 3. History of mild hypermenorrhea which did seem to improve with dietary changes 1 to 2 years ago. 4. Mild menstrual irregularity. PLAN: 1. Pap smear cotest was performed. The patient states she will try to get the records from Dr. Contreras to determine the diagnosis for her cryotherapy of the cervix done about 1 year ago. If unable to obtain these records, we will assume the cryotherapy was for some form of high-grade dysplasia. 2. Self breast awareness was discussed with the patient. We have also discussed symptoms associated with inflammatory breast cancer. 3. Screening mammogram was done on 10/26/2023 and was benign. She will repeat this in about 1 year. 4. Osteoporosis prevention was discussed. I have stressed the importance of adequate calcium, vitamin D and regular exercise. Recommended amounts of calcium and vitamin D were also discussed. 5. She will keep a menstrual calendar and return if she is having menstrual problems. 6. She was advised to return in one year for her annual well woman exam and as needed
== END ==
LOC: WWCWWP 09:52
PROVIDERS: ATTEND Obstetrics & Gynecology
DX: Z01.419 Encounter for gynecological examination (general) (routine) without abnormal findings (principal); N92.6 Irregular menstruation, unspecified; Z98.51 Tubal ligation status; Z92.89 Personal history of other medical treatment